=== PATIENT | male | born 1990 | race Caucasian/White ===

== ENCOUNTER → 2024-07-28 09:56 | Outpatient (REF) | payer OTHER, SELFPAY | LOC: HWRAD 09:56 | PROVIDERS: ATTENDING PHYSICIAN Family Medicine; FAMILY PHYSICIAN Nurse Practitioner | DX: N52.9 Male erectile dysfunction, unspecified (principal) | CPT/HCPCS: 76770; 76870; 93976 ==

== ENCOUNTER → 2025-04-02 15:39 | Outpatient (REF) | payer OTHER, SELFPAY | LOC: HWRAD 15:39 | PROVIDERS: ATTENDING PHYSICIAN Chiropractor; FAMILY PHYSICIAN Nurse Practitioner | DX: M54.2 Cervicalgia (principal); M25.512 Pain in left shoulder; M53.2X7 Spinal instabilities, lumbosacral region; R10.20 Pelvic and perineal pain unspecified side | CPT/HCPCS: 72050; 72110; 72170; 73030 ==